=== PATIENT | female | born 2000 | race Caucasian/White ===

== ENCOUNTER 2024-04-27 20:04 | Emergency (ER) | payer MEDICAID ==
[~2024-04-27] VITALS: Ht 170.2 cm; Wt 52.6 kg
[2024-04-27 21:56] LABS: *URINE HCG, QUAL NEGATIVE (NEGATIVE)
[2024-04-27 23:44] VITALS: BP 126/81; TEMP 208; O2SAT 99
== END 2024-04-27 23:30 | disposition home or self-care (01) ==
LOC: ER 20:04
DX: M48.48XA Fatigue fracture of vertebra, sacral and sacrococcygeal region, initial encounter for fracture (principal); X58.XXXA Exposure to other specified factors, initial encounter; Y93.89 Activity, other specified; Y92.89 Other specified places as the place of occurrence of the external cause; Y99.8 Other external cause status
CPT/HCPCS: 72220; 84703; A4606; A4663